=== PATIENT | female | born 1945 | race Caucasian/White ===

== ENCOUNTER 2021-01-31 09:03 | Observation (INO) | payer OTHER, BC ==
[~2021-01-31] VITALS: Ht 157.5 cm; Wt 76.2 kg
[~2021-01-31 09:03] MED LIST: BUDESONIDE0.5 MG/2 M INH; FLECAINIDE ACET50 M1 PO; IPRATROPIU0.2 MG/1 M INH; LOPRESSOR50 PO; LOVASTATIN 20 M20 MG PO; OMEPRAZOLE 20 M20 M1 PO; PERFOROMIS20 MCG/2 M INH; XARELTO20 MG PO
[2021-01-31 19:42] VITALS: BP 173/112
[2021-01-31 20:11] VITALS: BP 154/102
[2021-02-01 03:30] VITALS: BP 138/94
--- NOTE | 2021-02-01 03:34 | NUR ---
PT ASSESSED AT START OF SHIFT. POST OP PT. LEFT FACIAL STERILE STIRP DRESSING INTACT. DENIES PAIN. IV INTACT AND FLUIDS INFUSING. PT UP WITH SBA TO THE BATHROOM. ANTICIPATING D/C TOMORROW. FALL PREC IN PLACE AND CALL LIGHT AT REACH WILL CONT TO MONITOR.
[2021-02-01 07:37] VITALS: BP 131/83
--- NOTE | 2021-02-01 13:15 | NUR ---
ASSESSMENT: CM REVIEWED CHART AND MET WITH PATIENT. PT WAS AT THE BEDSIDE DRESSED AND READY TO DISCHARGE SHE STATES. PT REPORTS LIVING IN A HOUSE ALONE AND REPORTS BEING FULLY INDEPENDENT WITH ADLS AND AMBULATION. PT REPORTS SHE DOES NOT HAVE ANY NEEDS FROM CM. PT REPORTS HER FAMILY IS VERY SUPPORTIVE. PT HAS ORDERS TO DISCHARGE HOME TODAY NO NEEDS.
--- NOTE | 2021-02-02 11:07 | PATH ---
[facility] [address] [address] PATHOLOGY RPT PROCEDURE Name: CHELSY LANGFORD LANDON Room #: 445-P LORRAINE De La Paz#: [id number] Admission: 01/31/21 Date of : 41 Discharge: 02/01/21 Report #: [id number] Path Case #: [id number] [facility] Accession Number: [id number] . 01 Material submitted: . PART A: parotid gland - PAROTID SENTINEL NODE. Modifiers: LYMPH NODE PART B: face - LEFT FACIAL LYMPH NODE. 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 Modifiers: left . 01 Clinical history: . 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 02 Diagnosis: A. Tissue designated as "parotid sentinel node", biopsy: - Mixed salivary gland parenchyma. - No lymph node tissue present. - Negative for malignancy (please see comment). . B. Tissue designated as "left facial lymph node", biopsy: - Mixed salivary gland parenchyma. - No lymph node tissue present. - Negative for malignancy (please see comment). . C. 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 - Margins of resection widely free of malignancy; closest 3:00 and 9:00 margins are 1.2 cm away. - Closest deep margin is 0.4 cm (4 mm) away. - Negative for invasion into underlying skeletal muscle. (IUV:ana; 02/01/2021) . . Surgical Pathology Cancer Case Summary . Protocol posting date: October 2016 . BRENDEN CELL CARCINOMA OF THE SKIN: [address] [address] PATHOLOGY RPT PROCEDURE Name: CHELSY LANGFORD [facility] Room #: 445-P [facility] Sidney De La Paz#: [id number] Admission: 01/31/21 Date of : 41 Discharge: 02/01/21 Report #: [id number] Path Case #: [id number] . Select a single response unless otherwise indicated. . Procedure ___ Excision ___ Lymphadenectomy, sentinel node(s) . Specimen Laterality ___ Left . Tumor Site Specify (if known): Left cheek . Tumor Size Greatest dimension (centimeters): 0.6 cm . Tumor Thickness Specify (millimeters): 6 mm . Margins . Peripheral Margins ___ Uninvolved by carcinoma Distance of carcinoma from margin (millimeters): 12 mm Specify location(s), if possible: 3:00 and 9:00 . Deep Margin ___ Uninvolved by carcinoma Distance of carcinoma from margin (millimeters): 4 mm Specify location(s), if possible: 3:00 and 9:00 . Lymphovascular Invasion ___ Not identified . Tumor Extension ___ Not identified . Mitotic Rate ___ =1/mm2 (specify number): 2 . Tumor-Infiltrating Lymphocytes ___ Present, nonbrisk . Tumor Growth Pattern ___ Nodular . Presence of Second Malignancy ___ Not identified [facility] [address] [place] [address] PATHOLOGY RPT PROCEDURE Name: CHELSY LANGFORD LANDON Room #: 445-P LORRAINE De La Paz#: [id number] Admission: 01/31/21 Date of : 41 Discharge: 02/01/21 Report #: [id number] Path Case #: [id number] . Regional Lymph Nodes ___ No lymph nodes submitted or found (parotid sentinel node and facial node showing salivary gland parenchyma only) . . Pathologic Stage Classification (pTNM, AJCC 8th Edition) (Note G) . Primary Tumor (pT) ___ pT1: Maximum clinical tumor diameter =2 cm . Regional Lymph Nodes (pN) ___ pNX: Regional lymph nodes cannot be assessed (eg, previously removed for another reason or not removed for pathological evaluation) [facility] 02/01/2021 1551 Local . 02 Comment: A properly controlled CK20 immunohistochemical stain is performed on blocks A1, B1, as well as C3. The immunohistochemical stain is performed on blocks A1 and B1 to identify any occult tumor cells. The tissue designated "parotid sentinel node" and the left facial node submitted for microscopic examination showed increased counts intraoperatively. The CK20 immunohistochemical stain is nonreactive and supports no evidence of metastatic carcinoma within these tissues examined. 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 The stain is performed to exclude a possible metastatic small cell lung carcinoma. . These findings are communicated to Dr. Osman William in the morning of 02/01/2021. (IUV:ana; 02/01/2021) . 02 Electronically signed: . Gilda Alamo MD, Pathologist NPI- [id number] . 01 Gross description: . A. The specimen is received in formalin, labeled "Chelsy Langford, parotid sentinel node". It consists of 3 baez-yellow fatty tissue segments ranging from 1.0-1.5 cm in greatest mention. The specimen is entirely submitted in A1. . B. The specimen is received in formalin, labeled "Chelsy Langford, left facial lymph node". It consists of a baez probable lymph node measuring 0.9 x 0.7 x 0.3 cm. The specimen is entirely submitted in B1. . C. The specimen is received in formalin, labeled "Chelsy Langford, left [address] [address] PATHOLOGY RPT PROCEDURE Name: CHELSY LANGFORD LANDON Room #: 445-P [facility] Sidney M.RTeagan#: [id number] Admission: 01/31/21 Date of : 41 Discharge: 02/01/21 Report #: [id number] Path Case #: [id number] cheek Brenden cell carcinoma stitch hare 12:00 superior". It consists of an oriented ovoid skin excision measuring 3.0 x 2.7 and excised to a depth of 0.7 cm. The specimen is oriented with a stitch designating 12:00. Identified on the epidermal surface is a baez ill-defined nodular lesion measuring 0.6 x 0.4 cm. The lesion measures 1.3 cm from 12:00, 1.2 cm from 3:00, 1.2 cm from 6:00, and 1.1 cm from 9:00. The specimen is inked as follows: 12:00-3:00: Yellow; 3:00-6:00: Blue; 6:00-12:00 and deep: Black. The specimen is sectioned into 8 slices. The specimen is entirely submitted as follows: C1-C5: Mid sections, entirely submitted C6: 12:00 end, perpendicularly sectioned C7: 6:00 end, perpendicularly sectioned (MRF; 01/31/2021) MFE/MFE 02/01/2021 1523 Local . Pathologist provided ICD-10: C4A.39 . 02 CPT . 867473, 785451, 596569, I68743 Specimen Comment: A courtesy copy of this report has been sent to [phone] Specimen Comment: 2004 Specimen Comment: Report sent to / DR MUÑOZ Performed at: [address], [place] [id number] MD Jonathon Dalal MD Phone: [phone] Performed at: [address] [id number] MD Gilda Alamo MD Phone: [phone]
--- NOTE | 2021-02-07 16:15 | O ---
[facility] [place] [address] OPERATIVE REPORT Name: JAMIE BOWMAN Room #: 445-P [facility] Sidney MKrishna#: [id number] Admission: 01/31/21 Attend Phys: Helene William MD Discharge: 02/01/21 Date of : 41 Report #: [id number] THIS REPORT FOR: cc: HELENE MUÑOZ MD Physician not on staff Helene William MD ~ cc: Helene Muñoz MD, Solomon Tenorio MD, Joshua Garcia MD, Brayden Messina MD DATE OF SERVICE: 01/31/2021 PREOPERATIVE DIAGNOSIS: [place] cell carcinoma, left cheek. POSTOPERATIVE DIAGNOSIS: Brenden cell carcinoma, left cheek. OPERATIONS PERFORMED: 1. Wide local excision of Brenden cell carcinoma, left cheek, 3.5 x 3.5 cm. 2. Cervicofacial rotation flap reconstruction, left cheek. 3. Dauphin lymph node biopsy x2, left parotid and left facial artery lymph node. 4. Nerve integrity monitoring x4 hours. 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 Garcia, with a recently biopsy-proven [place] cell carcinoma on the left zygomatic arch. Biopsy had been done on 01/11/2021. This was a shave biopsy. The patient has undergone a workup including negative CT for lymph nodes. Recommendations were made for wide local excision with cervicofacial flap reconstruction and sentinel lymph node biopsy. The rationale of sentinel lymph node has been discussed with the patient and her daughter in detail at the time of the consultation and again today. DESCRIPTION OF PROCEDURE: The patient was brought to the operating room and placed supine on the operating table. After adequate general anesthesia was achieved via endotracheal intubation, she was turned to 180 degrees. Shoulder roll was placed and neck was extended. As a separate part of the procedure, the XiGen6 nerve integrity monitor was applied to the left face for continuous intraoperative monitoring of the facial nerve. Needle electrodes were placed in the orbicularis lisha and orbicularis oculi muscles with ground electrodes in the soft tissue overlying the sternum and contralateral shoulder. Electrode resistance and impedance was measured and found to be acceptable. Threshold and stimulus intensity parameters were set and the patient was monitored for the entirety of the case of approximately 4 hours in order to locate and protect the facial nerve. [address] [address] OPERATIVE REPORT Name: JAMIE BOWMAN [facility] Room #: 445-P LORRAINE De La Paz#: [id number] Admission: 01/31/21 Attend Phys: Helene William MD Discharge: 02/01/21 Date of : 41 Report #: [id number] Prior to starting, the gamma probe was used to investigate, the patient had been injected with technetium preoperatively. Unfortunately, the time delay was rather large between the injection and beginning surgery, measuring about 4 hours. Pickup was made over the left facial artery and pickup was made over the inferior tail of parotid. She was then prepped and draped sterilely. A corneal protector was placed with Lacri-Lube to protect the cornea during the surgery. Procedure began with a sentinel node biopsy beginning in the parotid region, a modified Familia incision was made. Dissection was made down to the parotid superficial to the superficial andrés-aponeurotic system, skin flaps were elevated. Dissection was made into the parotid gland proper, again it was difficult with the sentinel node monitor to isolate a specific node. There was a large amount of background uptake. A portion of the parotid was removed with nodularity as sentinel node biopsy. The initial count was 10-second count, in vivo was 146, ex vivo 148, and bed count of 12. Attention was then turned to the left facial as there was uptake there as well. A Doppler was used to identify the facial artery. An incision was then made low in the neck and dissection was made, taking care to identify the marginal mandibular branch of the facial nerve. Facial artery was identified and confirmed with Doppler. This was then dissected along its line over the mandible until the facial nerve artificial lymph node could be found, the 10-second in vivo count was 138, ex vivo 88, and bed count was again 10 post-removal. Once this was done, both sentinel nodes were delivered off the field as specimen. Hemostasis was assured with bipolar cautery. This incision was then closed with interrupted 4-0 Vicryl deep dermal sutures and 5-0 nylon on skin. Mastisol and Steri-Strips were applied. Attention was then turned to the Barr[place]qu[place] cell. Using separate instruments, excision was made, taking a 1.5 cm margin around the Brenden cell gross tumor. The final excision measured 3.5 x 3.5 cm. This extended to the lower eyelid. This was taken down deep into the subcutaneous tissues to the orbicularis oculi muscle. This was delivered off the field as specimen. The superior margin was identified with a 2-0 silk suture at 12 o'clock superior. Once this was completed, these instruments were moved off this field and gloves were changed. Reconstruction was chosen extending laterally so that the vector of pull on the eyelid would be superior. This was measured at 3 cm and wide undermining was undertaken utilizing the previous incision that had been done in the neck effectively creating an entire cervicofacial rotation flap. This flap was then rotated into the defect and closed with interrupted 4-0 Vicryl deep dermal sutures and 5-0 nylon on skin. This inset nicely with no significant stress on the flap. Once this was inset, the inferior incision was then closed, but prior to doing that, a 10-Portuguese Jose Antonio drain was placed through a separate postauricular stab incision and curled into the wound. This was closed as well with 4-0 Vicryl and 5-0 nylon. Mastisol and Steri-Strips were applied to both of these with Op-Site. The patient was then returned to Anesthesia, awakened without difficulty, returned to recovery in good condition. Sponge and needle [facility] [address] [place] [address] OPERATIVE REPORT Name: JAMIE BOWMAN [facility] Room #: 445-P [facility] M.R.#: [id number] Admission: 01/31/21 Attend Phys: Helene William MD Discharge: 02/01/21 Date of : 41 Report #: [id number] counts were correct. There were no complications. Blood loss was minimal. I had explained to the patient and her family in consultation with Dr. Alamo from Pathology that frozen sections cannot be done and we will have to rely on permanent sections for clearance of the margin. For this, surgery is potentially necessary if this is positive. They also understand that if the sentinel node is positive at a different time, a neck dissection would be necessary. <ELECTRONICALLY SIGNED> By: Helene William MD 02/07/21 1615 1604 1740 Helene William MD /katelin
== END 2021-02-01 10:40 | disposition home or self-care (01) ==
LOC: OR 09:03 → TBA 16:39 → OR 16:49 → TBA 16:50 → 4S 18:10
PROVIDERS: ADMIT Otolaryngology Plastic Surgery within the Head & Neck; ATTEND Otolaryngology Plastic Surgery within the Head & Neck
DX: C4A.39 Merkel cell carcinoma of other parts of face (principal); Z20.822 Contact with and (suspected) exposure to COVID-19; Z88.1 Allergy status to other antibiotic agents; Z91.048 Other nonmedicinal substance allergy status; Z88.8 Allergy status to other drugs, medicaments and biological substances
CPT/HCPCS: 50010; 50101; 50386; 50403; 51412; 52190; 52220; 52225; 56524; 56526; 56527; 56760; 57006; 58902; 62110; 62900; 70005